=== PATIENT | male | born 1970 | race Caucasian/White ===

== ENCOUNTER 2022-11-22 18:52 | Inpatient (IN) | payer OTHER ==
[~2022-11-22 18:52] MED LIST: Iopamidol-370 76% 500 ML MDV (1 ML CHARGE) ONE
[2022-11-22] MEDS ORDERED: niCARdipine 25 MG in Sodium Chloride 0.9% 250 ML 250 ML IVPB SCH ×2 (20:15→20:43)
[2022-11-22 20:24] VITALS: BMI 32.5
[2022-11-22] MEDS ORDERED: hydrALAZINE 20 MG/ML VIAL SLOW IVP PRN (20:34)
[2022-11-22] MEDS ORDERED: Albuterol 200 PUFF (6.7GM INHALER) INH PRN (20:43)
[2022-11-22] MEDS: hydrALAZINE 20 MG/ML VIAL SLOW IVP PRN ×2 (20:51→22:33)
[2022-11-22] MEDS ORDERED: Ondansetron PF 4 MG/2 ML Vial IVP SCH (21:15)
[2022-11-22] MEDS: Morphine 2 MG/ML VIAL SLOW IVP PRN ×2 (21:15→23:05)
[2022-11-22] MEDS: Furosemide 40 MG TAB PO SCH (22:00)
[2022-11-22] MEDS ORDERED: Electrolyte Replacement Protocol 1 EACH IVPB SCH (23:51)
[2022-11-22] MEDS ORDERED: Acetaminophen 650 MG Suppository PR PRN (23:51)
[2022-11-22] MEDS ORDERED: Calcium Carbonate 500 MG ChewTAB PO PRN (23:52)
[2022-11-22] MEDS ORDERED: Senokot S 8.6-50 MG TAB PO PRN (23:52)
[2022-11-23] MEDS: Ondansetron PF 4 MG/2 ML Vial IVP SCH ×6 (00:07→20:17)
[2022-11-23] MEDS: Sodium Chloride 0.9% 1,000 ML IV SCH ×2 (00:34→12:44)
[2022-11-23] MEDS: Morphine 2 MG/ML VIAL SLOW IVP PRN ×9 (01:19→20:18)
[2022-11-23] MEDS: hydrALAZINE 20 MG/ML VIAL SLOW IVP PRN (03:12)
[2022-11-23] MEDS ORDERED: Morphine 2 MG/ML VIAL SLOW IVP SCH (04:45)
[2022-11-23 05:01] LABS: #Monocytes 1.4 thou/uL (0.11-0.59); #Neutrophils 9.9 thou/uL (1.40-6.50); %Basophils 0.2 % (0.0-1.0); %Eosinophils 0.2 % (0.0-10.0); %Lymphocytes 11.6 % (21.0-51.0); %Monocytes 10.6 % (0.0-10.0); Hematocrit 48.9 % (42.0-52.0); Hemoglobin 16.5 g/dL (14.0-18.0); Mean Corpuscular HGB CONC 33.7 g/dL (32.0-36.0); Mean Corpuscular Hemoglobin 29.7 pg (27.0-31.0); Mean Corpuscular Volume 87.9 fl (78.0-98.0); Mean Platelet Volume 10.1 fL (7.4-10.4); Platelet Count 267 10x3/uL (130-400); RBC Distribution Width 12.4 % (11.5-14.5); Red Blood Cell (RBC) Count 5.56 mill/uL (4.70-6.10); White Blood Cell (WBC) Count 12.9 10x3/uL (4.8-10.8)
[2022-11-23 05:26] LABS: Anion Gap 14 mmol/L (10-20); BUN (Urea Nitrogen) 16 mg/dL (8.4-25.7); Calc. Creatinine Clearance 145 mL/min (70-130); Calcium 9.8 mg/dL (7.8-10.44); Carbon Dioxide 23 mmol/L (22-29); Chloride 101 mmol/L (98-107); Estimated GFR 100; Glucose 127 mg/dL (70-105); Magnesium 1.8 mg/dL (1.6-2.6); Phosphorus 3.6 mg/dL (2.3-4.7); Potassium 4.2 mmol/L (3.5-5.1); Sodium 134 mmol/L (136-145)
[2022-11-23] MEDS: Mometasone 100 MCG HFA INHALER (RT USE) INH SCH ×2 (07:06→18:09)
[2022-11-23] MEDS: Ipratropium 200 Puff Oral Inhaler INH SCH (07:09)
[2022-11-23] MEDS ORDERED: Magnesium 2 GM/50 ML(in water) 2 GM in Premix Bag 1 BAG IVPB SCH (08:00)
[2022-11-23] MEDS: Famotidine/PF 20 mg/2ml Vial SLOW IVP SCH ×2 (08:32→20:17)
[2022-11-23] MEDS: Spironolactone 25 MG TAB PO SCH (08:33)
[2022-11-23] MEDS: DULoxetine 30 MG CAP PO SCH (08:33)
[2022-11-23] MEDS: Furosemide 40 MG TAB PO SCH (08:33)
[2022-11-23] MEDS: Carvedilol 25 MG TAB PO SCH ×2 (08:34→16:10)
[2022-11-23] MEDS: Famotidine 20 MG TAB PO SCH ×2 (08:41→20:17)
[2022-11-23] MEDS: Acetaminophen 650 MG/20.3 ML UDCUP PO PRN (20:17)
[2022-11-23] MEDS ORDERED: Simvastatin 10 MG TAB PO SCH (21:00)
[2022-11-24] MEDS: Ondansetron PF 4 MG/2 ML Vial IVP SCH ×4 (00:07→15:49)
[2022-11-24] MEDS: Morphine 2 MG/ML VIAL SLOW IVP PRN ×5 (00:07→10:24)
[2022-11-24] MEDS: Acetaminophen 650 MG/20.3 ML UDCUP PO PRN ×2 (01:50→07:39)
[2022-11-24] MEDS: Sodium Chloride 0.9% 1,000 ML IV SCH (04:28)
[2022-11-24 04:46] LABS: #Eosinphils 0.2 thou/uL (0.0-0.7); #Monocytes 1.6 thou/uL (0.11-0.59); #Neutrophils 7.3 thou/uL (1.40-6.50); %Basophils 0.3 % (0.0-1.0); %Eosinophils 1.6 % (0.0-10.0); %Lymphocytes 14.9 % (21.0-51.0); %Monocytes 15.1 % (0.0-10.0); %Neutrophils 67.8 % (42.0-75.0); Hematocrit 42.5 % (42.0-52.0); Hemoglobin 14.7 g/dL (14.0-18.0); Mean Corpuscular HGB CONC 34.6 g/dL (32.0-36.0); Mean Corpuscular Hemoglobin 29.9 pg (27.0-31.0); Mean Corpuscular Volume 86.4 fl (78.0-98.0); Mean Platelet Volume 10.3 fL (7.4-10.4); Platelet Count 236 10x3/uL (130-400); RBC Distribution Width 12.5 % (11.5-14.5); Red Blood Cell (RBC) Count 4.92 mill/uL (4.70-6.10); White Blood Cell (WBC) Count 10.7 10x3/uL (4.8-10.8)
[2022-11-24 05:18] LABS: Anion Gap 12 mmol/L (10-20); BUN (Urea Nitrogen) 18 mg/dL (8.4-25.7); Calc. Creatinine Clearance 131 mL/min (70-130); Calcium 9.3 mg/dL (7.8-10.44); Carbon Dioxide 22 mmol/L (22-29); Chloride 102 mmol/L (98-107); Estimated GFR 88; Glucose 123 mg/dL (70-105); Potassium 4.1 mmol/L (3.5-5.1); Sodium 132 mmol/L (136-145)
[2022-11-24] MEDS: Mometasone 100 MCG HFA INHALER (RT USE) INH SCH (07:24)
[2022-11-24] MEDS: Ipratropium 200 Puff Oral Inhaler INH SCH (07:27)
[2022-11-24] MEDS: Spironolactone 25 MG TAB PO SCH (07:41)
[2022-11-24] MEDS: Carvedilol 25 MG TAB PO SCH (08:00)
[2022-11-24] MEDS: Famotidine/PF 20 mg/2ml Vial SLOW IVP SCH (09:05)
[2022-11-24] MEDS: Famotidine 20 MG TAB PO SCH (09:05)
[2022-11-24] MEDS: DULoxetine 30 MG CAP PO SCH (09:05)
[2022-11-24 14:52] VITALS: BP 140/77
[2022-11-24 16:04] VITALS: TEMP 98.5
== END 2022-11-24 15:30 | disposition home or self-care (01) | DRG 65 ==
LOC: CCU 19:56 → EEVIPCON 19:56 → CCU 11-24 06:39
PROVIDERS: ADMIT Neurological Surgery; ATTEND Neurological Surgery
DX: I60.7 Nontraumatic subarachnoid hemorrhage from unspecified intracranial artery (principal); E87.1 Hypo-osmolality and hyponatremia; I50.22 Chronic systolic (congestive) heart failure; I13.0 Hypertensive heart and chronic kidney disease with heart failure and stage 1 through stage 4 chronic kidney disease, or unspecified chronic kidney disease; J44.9 Chronic obstructive pulmonary disease, unspecified; E78.5 Hyperlipidemia, unspecified; B19.20 Unspecified viral hepatitis C without hepatic coma; G47.33 Obstructive sleep apnea (adult) (pediatric); E83.42 Hypomagnesemia; N18.2 Chronic kidney disease, stage 2 (mild); E66.9 Obesity, unspecified; Z90.49 Acquired absence of other specified parts of digestive tract; Z98.890 Other specified postprocedural states; Z95.810 Presence of automatic (implantable) cardiac defibrillator; Z79.51 Long term (current) use of inhaled steroids; Z79.899 Other long term (current) drug therapy; Z79.82 Long term (current) use of aspirin; Z68.33 Body mass index [BMI] 33.0-33.9, adult
CPT/HCPCS: 36415; 70450; 70496; 80048; 83735; 84100; 85025; 93880; J0360; J2272; J2405; J3475; J7050; Q9967; S0028

== ENCOUNTER 2022-11-25 00:01 | Inpatient (IN) | payer OTHER ==
[2022-11-25 01:50] LABS: #Eosinphils 0.1 thou/uL (0.0-0.7); #Monocytes 1.2 thou/uL (0.11-0.59); %Basophils 0.2 % (0.0-1.0); %Eosinophils 1.3 % (0.0-10.0); %Lymphocytes 13.2 % (21.0-51.0); Hematocrit 39.9 % (42.0-52.0); Mean Corpuscular HGB CONC 35.1 g/dL (32.0-36.0); Mean Corpuscular Hemoglobin 29.7 pg (27.0-31.0); Mean Corpuscular Volume 84.7 fl (78.0-98.0); Platelet Count 240 10x3/uL (130-400); Red Blood Cell (RBC) Count 4.71 mill/uL (4.70-6.10); White Blood Cell (WBC) Count 10.8 10x3/uL (4.8-10.8)
[2022-11-25 02:05] LABS: Prothrombin Time 13.4 sec (12.0-14.7)
[2022-11-25] MEDS ORDERED: diphenhydrAMINE 50 MG/ML VIAL ONE (02:05)
[2022-11-25] MEDS ORDERED: Metoclopramide HCl 10 MG/2 ML VIAL ONE (02:05)
[2022-11-25] MEDS ORDERED: fentaNYL 50 mcg/mL 1 mL Vial ONE (02:05)
[2022-11-25 02:06] LABS: PTT 30.2 sec (22.9-36.1)
[2022-11-25 02:23] LABS: ALT (SGPT) 23 U/L (8-55); AST (SGOT) 16 U/L (5-34); Albumin 4.1 g/dL (3.5-5.0); Alkaline Phosphatase 97 U/L (40-110); Anion Gap 13 mmol/L (10-20); BUN (Urea Nitrogen) 16 mg/dL (8.4-25.7); Bilirubin, Total 1.2 mg/dL (0.2-1.2); Calc. Creatinine Clearance 0 mL/min (70-130); Calcium 9.4 mg/dL (7.8-10.44); Carbon Dioxide 25 mmol/L (22-29); Chloride 94 mmol/L (98-107); Estimated GFR 104; Globulin 3.1 g/dL (2.4-3.5); Glucose 125 mg/dL (70-105); Potassium 3.6 mmol/L (3.5-5.1); Protein, Total 7.2 g/dL (6.0-8.3); Sodium 128 mmol/L (136-145)
[2022-11-25] MEDS ORDERED: Ondansetron ODT 4 MG TAB PO PRN (05:47)
[2022-11-25] MEDS ORDERED: Acetaminophen 650 MG Suppository PR PRN (05:47)
[2022-11-25] MEDS ORDERED: Acetaminophen 325 MG TAB ONE (10:11)
[2022-11-25] MEDS: Acetaminophen 325 MG TAB PO PRN (10:17)
[2022-11-25] MEDS ORDERED: Iopamidol-370 76% 500 ML MDV (1 ML CHARGE) ONE (11:26)
[2022-11-25] MEDS ORDERED: Fioricet 325/50/40 mg Tablet PO SCH ×2 (12:30→14:45)
[2022-11-25 14:12] VITALS: BMI 35.4
[2022-11-25] MEDS ORDERED: HYDROcodone/Acetaminophen 5/325 mg Tablet PO SCH (16:45)
[2022-11-25] MEDS ORDERED: HYDROcodone/Acetaminophen 5/325 mg Tablet ONE (17:09)
[2022-11-25] MEDS: HYDROcodone/Acetaminophen 5/325 mg Tablet PO PRN (20:27)
[2022-11-25] MEDS ORDERED: hydrALAZINE 20 MG/ML VIAL SLOW IVP SCH (22:15)
[2022-11-25] MEDS ORDERED: Amlodipine 10 MG TAB PO SCH (22:15)
[2022-11-25] MEDS ORDERED: Acetaminophen 500 MG TAB PO SCH (22:30)
[2022-11-26] MEDS ORDERED: hydrALAZINE 20 MG/ML VIAL SLOW IVP SCH (00:30)
[2022-11-26] MEDS: Acetaminophen 325 MG TAB PO PRN ×2 (03:50→09:02)
[2022-11-26 05:23] LABS: #Eosinphils 0.1 thou/uL (0.0-0.7); #Monocytes 1.2 thou/uL (0.11-0.59); #Neutrophils 7.4 thou/uL (1.40-6.50); %Basophils 0.2 % (0.0-1.0); %Eosinophils 1.2 % (0.0-10.0); %Lymphocytes 13.7 % (21.0-51.0); %Monocytes 12.1 % (0.0-10.0); %Neutrophils 72.3 % (42.0-75.0); Hematocrit 43.6 % (42.0-52.0); Hemoglobin 15.2 g/dL (14.0-18.0); Mean Corpuscular HGB CONC 34.9 g/dL (32.0-36.0); Mean Corpuscular Hemoglobin 29.7 pg (27.0-31.0); Mean Corpuscular Volume 85.3 fl (78.0-98.0); Platelet Count 262 10x3/uL (130-400); RBC Distribution Width 12.1 % (11.5-14.5); Red Blood Cell (RBC) Count 5.11 mill/uL (4.70-6.10); White Blood Cell (WBC) Count 10.2 10x3/uL (4.8-10.8)
[2022-11-26 05:54] LABS: Anion Gap 12 mmol/L (10-20); BUN (Urea Nitrogen) 13 mg/dL (8.4-25.7); Calc. Creatinine Clearance 166 mL/min (70-130); Calcium 9.5 mg/dL (7.8-10.44); Carbon Dioxide 24 mmol/L (22-29); Chloride 95 mmol/L (98-107); Estimated GFR 106; Glucose 113 mg/dL (70-105); Potassium 3.7 mmol/L (3.5-5.1); Sodium 127 mmol/L (136-145)
[2022-11-26] MEDS: HYDROcodone/Acetaminophen 5/325 mg Tablet PO PRN ×3 (06:49→16:43)
[2022-11-26] MEDS: Ondansetron PF 4 MG/2 ML Vial IVP PRN ×2 (07:35→20:20)
[2022-11-26] MEDS: Amlodipine 10 MG TAB PO SCH ×2 (09:03→09:04)
[2022-11-26] MEDS: Carvedilol 25 MG TAB PO SCH ×2 (09:06→20:21)
[2022-11-26] MEDS ORDERED: HYDROcodone/Acetaminophen 5/325 mg Tablet PO PRN (16:57)
[2022-11-26] MEDS: Morphine ER 15 MG TAB PO SCH (20:20)
[2022-11-27] MEDS: HYDROcodone/Acetaminophen 5/325 mg Tablet PO PRN ×2 (03:33→10:35)
[2022-11-27 07:44] VITALS: TEMP 97.4
[2022-11-27] MEDS: Amlodipine 10 MG TAB PO SCH (08:46)
[2022-11-27] MEDS: Carvedilol 25 MG TAB PO SCH (08:46)
[2022-11-27] MEDS: Morphine ER 15 MG TAB PO SCH (08:47)
[2022-11-27] MEDS: Ondansetron PF 4 MG/2 ML Vial IVP PRN (09:27)
[2022-11-27 11:32] VITALS: BP 149/89
== END 2022-11-27 14:35 | DRG 65 ==
LOC: ERS 00:01 → EEVIPCON 00:01 → ERHOLD 04:18 → 2SE 19:46 → OBSVTOIN 11-26 16:45
PROVIDERS: ADMIT Student in an Organized Health Care Education/Training Program; ATTEND Internal Medicine Critical Care Medicine
DX: I61.9 Nontraumatic intracerebral hemorrhage, unspecified (principal); E87.1 Hypo-osmolality and hyponatremia; I11.0 Hypertensive heart disease with heart failure; I50.9 Heart failure, unspecified; E78.5 Hyperlipidemia, unspecified; J44.9 Chronic obstructive pulmonary disease, unspecified; Z79.51 Long term (current) use of inhaled steroids; Z79.899 Other long term (current) drug therapy; Z86.73 Personal history of transient ischemic attack (TIA), and cerebral infarction without residual deficits; Z90.49 Acquired absence of other specified parts of digestive tract; Z87.891 Personal history of nicotine dependence
CPT/HCPCS: 36415; 70496; 80048; 80053; 85025; 85610; 85730; 93005; J0360; J1200; J2405; J2765; J3010; Q9967